=== PATIENT | female | born 1960 | race Caucasian/White ===

== ENCOUNTER 2023-03-08 19:52 | Emergency (ER) | payer BC ==
[~2023-03-08] VITALS: Ht 152.4 cm; Wt 58.2 kg
[2023-03-08 19:54] VITALS: BP 146/80; TEMP 98.4; O2SAT 97
[2023-03-09] MEDS ORDERED: ceFAZolin SOD 1 GM in D5W MINI-BAG PLUS 50 ML IV ONE (00:10)
[2023-03-09] MEDS ORDERED: BOOSTRIX VACCINE (TETANUS/DIPHTH/ACEL. PERTUSSIS) 0.5ML SYR IM ONE (00:10)
[2023-03-09] MEDS ORDERED: LIDOCAINE 1% MDV 20ML VIAL SC ONE (00:10)
[2023-03-09] MEDS ORDERED: CEPH500C PO (01:03)
[2023-03-09] MEDS ORDERED: DIFL150T PO (01:18)
== END 2023-03-09 01:32 | disposition home or self-care (01) ==
LOC: M ED 19:52
DX: S66.222A Laceration of extensor muscle, fascia and tendon of left thumb at wrist and hand level, initial encounter (principal); W26.0XXA Contact with knife, initial encounter; Y92.009 Unspecified place in unspecified non-institutional (private) residence as the place of occurrence of the external cause; I10 Essential (primary) hypertension
CPT/HCPCS: 12001; 73130; 90471; 90715; 96374; 99284; J0690